=== PATIENT | female | born 1975 | race Asian ===

== ENCOUNTER → 2017-05-17 | Outpatient (CLI) | payer BC | LOC: FIMAGING 10:03 | PROVIDERS: ATTEND Obstetrics & Gynecology | DX: Z12.31 Encounter for screening mammogram for malignant neoplasm of breast (principal) | CPT/HCPCS: G0202 ==

== ENCOUNTER → 2018-05-18 | Outpatient (CLI) | payer BC, OTHER | LOC: FIMAGING 07:39 | PROVIDERS: ATTEND Obstetrics & Gynecology | DX: Z12.31 Encounter for screening mammogram for malignant neoplasm of breast (principal); Z80.3 Family history of malignant neoplasm of breast ==

== ENCOUNTER 2018-08-07 19:41 | Observation (INO) | payer OTHER ==
[2018-08-07] MEDS ORDERED: ONDANSETRON 4 MG/2 ML VIAL IVP ONE (19:58)
[2018-08-07] MEDS ORDERED: NS 1,000 ML IV ONE (19:58)
[2018-08-07] MEDS ORDERED: fentaNYL 100 MCG/2 ML INJ IVP ONE ×2 (19:58→21:17)
--- NOTE | 2018-08-07 19:59 | EDPHY ---
H & P Stated Complaint: Abdominal Pain Time Seen by Provider: 08/07/18 19:49 HPI/ROS: Chief Complaint: Abdominal pain, vomit HPI: 43-year-old woman began having onset of central abdominal pain at 2:00 a.m. This afternoon. She has vomited multiple times. No diarrhea. Patient described the pain as central pain, 8/10. No blood or coffee-grounds in her emesis. No fevers or chills. Does have a history of similar episodes years ago associated with food poisoning. She did eat some chicken and rice at lunchtime today. No other family members have been ill. No abdominal surgeries in the past. No fevers or chills. No cough. ROS: 10 systems were reviewed and were negative except those elements noted in the HPI. PMH: Denies Social History: No smoking, no alcohol, no recreational drug use Family History: non-contributory Physical Exam: Gen: Awake, Alert, No Distress HEENT: Nose: no rhinorrhea Eyes: PERRLA, EOMI Mouth: Moist mucosa Neck: Supple, no JVD Chest: nontender, lungs clear to auscultation Heart: S1, S2 normal, no murmur Abd: Soft, moderate right lower quadrant tenderness with mild voluntary guarding , no rebound Back: no CVA tenderness, no midline tenderness Ext: no edema, non-tender Skin: no rash Neuro: CN II-XII intact, Sensation grossly intact, Strength 5/5 in bilateral upper and lower extremities - Personal History LMP (Females 10-55): 8-14 Days Ago Current Tetanus/Diphtheria Vaccine: Yes Current Tetanus Diphtheria and Acellular Pertussis (TDAP): Yes - Medical/Surgical History Hx Asthma: No Hx Chronic Respiratory Disease: No Hx Diabetes: No Hx Cardiac Disease: No Hx Renal Disease: No Hx Cirrhosis: No Hx Alcoholism: No Hx HIV/AIDS: No Hx Splenectomy or Spleen Trauma: No Other PMH: Stomach ulcer - Social History Smoking Status: Never smoked Constitutional: Initial Vital Signs Temperature (C) 36.9 C 08/07/18 19:45 Heart Rate 68 08/07/18 19:45 Respiratory Rate 16 08/07/18 19:45 Blood Pressure 110/51 L 08/07/18 19:45 O2 Sat (%) 100 08/07/18 19:45 O2 Delivery Mode Room Air Allergies/Adverse Reactions: Penicillins Allergy (Unknown, Verified 09/15/09 17:11) Unknown Medical Decision Making - Diagnostics Imaging Results: Imaging Impressions Abdomen CT 08/07/18 19:58 Impression: 1. Acute appendicitis with appendiceal thickening up to 12 mm and periappendiceal fluid. 2. Mild constipation without bowel obstruction or pneumoperitoneum. Findings and recommendations discussed with Emergency Department physician, Donnie Springer MD at 21:00 hour, 08/07/2018. Final report concurs with initial preliminary interpretation. Imaging: Discussed imaging studies w/ call worker person Radiologist ED Course/Re-evaluation: CT scan positive for acute appendicitis. I have ordered ceftriaxone and Flagyl. Patient has a penicillin allergy but has had rash in the past. I have paged General surgery. Patient last ate at 1:00 p.m.. - Data Points Laboratory Results: Laboratory Results 08/07/18 20:00 08/07/18 20:00 08/07/18 08/07/18 08/07/18 20:50 20:00 20:00 WBC RBC Hgb Hct MCV MCH MCHC RDW Plt Count MPV Neut % (Auto) Lymph % (Auto) [place] % (Auto) Eos % (Auto) Baso % (Auto) Nucleat RBC Rel Count Absolute Neuts (auto) Absolute Lymphs (auto) Absolute Monos (auto) Absolute Eos (auto) Absolute Basos (auto) Absolute Nucleated RBC Immature Gran % Immature Gran # Sodium 138 mEq/L mEq/L (135-145) Potassium 3.7 mEq/L mEq/L (3.5-5.2) Chloride 105 mEq/L mEq/L (97-110) Carbon Dioxide 23 mEq/l mEq/l (22-31) Anion Gap 10 mEq/L mEq/L (6-14) BUN 18 mg/dL mg/dL (7-23) Creatinine 0.8 mg/dL mg/dL (0.6-1.0) Estimated GFR > 60 Glucose 109 mg/dL H mg/dL (70-100) Calcium 9.5 mg/dL mg/dL (8.5-10.4) Total Bilirubin 0.5 mg/dL mg/dL (0.1-1.4) AST 27 IU/L IU/L (14-46) ALT 26 IU/L IU/L (9-52) Alkaline Phosphatase 74 IU/L IU/L (38-126) Total Protein 7.6 g/dL g/dL (6.3-8.2) Albumin 4.5 g/dL g/dL (3.5-5.0) Beta HCG, Qual NEGATIVE Urine Color Pending Urine Appearance Pending Urine pH Pending Ur Specific [place] Pending Urine Protein Pending Urine Ketones Pending Urine Blood Pending Urine Nitrate Pending Urine Bilirubin Pending Urine Urobilinogen Pending Ur Leukocyte Esterase Pending Urine Glucose Pending 08/07/18 20:00 WBC 15.15 10^3/uL H 10^3/uL (3.80-9.50) RBC 3.98 10^6/uL L 10^6/uL (4.18-5.33) Hgb 13.1 g/dL g/dL (12.6-16.3) Hct 38.5 % % (38.0-47.0) MCV 96.7 fL fL (81.5-99.8) MCH 32.9 pg pg (27.9-34.1) MCHC 34.0 g/dL g/dL (32.4-36.7) RDW 12.2 % % (11.5-15.2) Plt Count 244 10^3/uL 10^3/uL (150-400) MPV 10.5 fL fL (8.7-11.7) Neut % (Auto) 88.2 % H % (39.3-74.2) Lymph % (Auto) 7.4 % L % (15.0-45.0) [place] % (Auto) 3.6 % L % (4.5-13.0) Eos % (Auto) 0.1 % L % (0.6-7.6) Baso % (Auto) 0.4 % % (0.3-1.7) Nucleat RBC Rel Count 0.0 % % (0.0-0.2) Absolute Neuts (auto) 13.35 10^3/uL H 10^3/uL (1.70-6.50) Absolute Lymphs (auto) 1.12 10^3/uL 10^3/uL (1.00-3.00) Absolute Monos (auto) 0.55 10^3/uL 10^3/uL (0.30-0.80) Absolute Eos (auto) 0.02 10^3/uL L 10^3/uL (0.03-0.40) Absolute Basos (auto) 0.06 10^3/uL 10^3/uL (0.02-0.10) Absolute Nucleated RBC 0.00 10^3/uL 10^3/uL (0-0.01) Immature Gran % 0.3 % % (0.0-1.1) Immature Gran # 0.05 10^3/uL 10^3/uL (0.00-0.10) Sodium Potassium Chloride Carbon Dioxide Anion Gap BUN Creatinine Estimated GFR Glucose Calcium Total Bilirubin AST ALT Alkaline Phosphatase Total Protein Albumin Beta HCG, Qual Urine Color Urine Appearance Urine pH Ur Specific [place] Urine Protein Urine Ketones Urine Blood Urine Nitrate Urine Bilirubin Urine Urobilinogen Ur Leukocyte Esterase Urine Glucose Medications Given: Discontinued Medications Fentanyl (Sublimaze) 50 mcg IVP EDNOW ONE Stop: 08/07/18 19:59 Last Admin: 08/07/18 20:07 Dose: 50 mcg Sodium Chloride (Ns) 1,000 mls @ 0 mls/hr IV ONCE ONE; Wide Open PRN Reason: Protocol Stop: 08/07/18 19:59 Last Admin: 08/07/18 20:07 Dose: 1,000 mls Ondansetron HCl (Zofran) 4 mg IVP EDNOW ONE Stop: 08/07/18 19:59 Last Admin: 08/07/18 20:07 Dose: 4 mg Departure - Departure Disposition: [facility] Inpatient Acute Clinical Impression: Acute appendicitis Condition: Fair Referrals: Jazz Morales PA [Primary Care Provider] - As per Instructions
[2018-08-07] MEDS ORDERED: IOHEXOL 350mgI/ML (OMNIPAQUE) 150 ML BTL IV ONE (20:37)
[2018-08-07 20:57] LABS: PLATELET COUNT 244 10^3/uL (150-400)
[2018-08-07] MEDS ORDERED: LR 1,000 ML IV ONE (21:37)
--- NOTE | 2018-08-07 21:53 | PDGENHP ---
History & Physical Chief Complaint: RLQ PAIN History of Present Illness: 44 FEMALE WITH 8HRS OF RLQ PAIN. SOME EMESIS BUT NO DIARHEA OR FEVER. WBC 15K. CT SHOWS 12 MM APPENDIX. RISKS AND OPTIONS FULLY DISCUSSED AND SHE WISHES TO PROCEED WITH LAP APPE Pertinent Past, Social, Family History: PMH NO MAJOR PROBLEMS AND NO PRIOR SURGERY. ROS - 10 PT REVIEW. SOC HX NO SMOKING. ALL PCN. MEDS NONE. FAM HX NONCONTRIBUTORY Relevant Physical Exam: GEN HEALTHY 44 FEMALE IN NO ACUTE DISTRESS, AFEBRILE. HEENT NONICTERIC, NO NODES OR ORAL LESIONS, PERRLA. CHEST CLEAR. COR RR. ABD SOFT WITH BS, TENDER LOWER ABD WITH SOME REBOUND. EXTREM OK. NEURO OK. PSYCH ALERT, ORIENTED, COOPERATIVE Cardiorespiratory Assessment: IMP ACUTE APPENDICITIS. PLAN LAP APPE/ RISKS AND OPTIONS FULLY DISCUSSED
[2018-08-07] MEDS ORDERED: HYDROmorphONE/DILAUDID 1 MG/ML INJ IVP PRN (21:58)
[2018-08-07] MEDS ORDERED: ONDANSETRON 4 MG/2 ML VIAL IVP PRN ×2 (21:58→23:17)
[2018-08-07] MEDS ORDERED: ZOLPIDEM TARTRATE 5 MG TAB PO PRN (21:59)
[2018-08-07] MEDS ORDERED: D5W 1/2 NS W/ 20 KCl/L 1,000 ML IV SCH (22:00)
--- NOTE | 2018-08-07 22:17 | PDANEPAE ---
ANE History of Present Illness appendicitis s/f lap appy ANE Past Medical History - Pulmonary History Hx Oxygen in Use at Home: No Hx Sleep Apnea: No - Endocrine History Hx Diabetes: No ANE Review of Systems Review of Systems: - Exercise capacity Exercise capacity: >=4 METS ANE Patient History - Allergies Allergies/Adverse Reactions: Penicillins Allergy (Unknown, Verified 08/07/18 21:41) Rash - Home Medications Home medications: home medication list seen and reviewed Home Medications: Ascorbic Acid [Vitamin C 500 mg (*)] 500 mg PO DAILY 08/07/18 [Last Taken ] Cholecalciferol Vit D3 [Vitamin D3 (*)] 1,000 units PO DAILY 08/07/18 [Last Taken 08/07/18] Herbals/Supplements -Info Only 1 ea PO AD 08/07/18 [Last Taken Unknown] Zolpidem Tartrate [Ambien 5MG (*)] 5 mg PO HS PRN 08/07/18 [Last Taken 08/04/18] - NPO status NPO Status: no food or drink >8 hours NPO Since - Liquids (Date): 08/07/18 NPO Since - Liquids (Time): 13:30 NPO Since - Solids (Date): 08/07/18 NPO Since - Solids (Time): 13:30 - Anes Hx Anes Hx: no prior problems - Smoking Hx Smoking Status: Never smoked Marijuana use: No - Alcohol Use Alcohol Use: Rarely - Family Anes Hx Family Anes Hx: none ANE Labs/Vital Signs - Labs Result Diagrams: 08/07/18 20:00 08/07/18 20:00 - Vital Signs Blood Pressure: 110/65 Heart Rate: 66 Respiratory Rate: 14 O2 Sat (%): 99 Height: 160.02 cm Weight: 47.627 kg ANE Physical Exam - Airway Neck exam: FROM Mallampati Score: Class 1 Mouth exam: normal dental/mouth exam - Pulmonary Pulmonary: no respiratory distress - Cardiovascular Cardiovascular: regular rate and rhythym - ASA Status ASA Status: I, E ANE Anesthesia Plan Anesthesia Plan: general endotracheal anesthesia
[2018-08-07] MEDS ORDERED: PROPOFOL/EMULSION 500 MG/50 ML BOTTLE IV ONE (22:23)
[2018-08-07] MEDS ORDERED: fentaNYL 100 MCG/2 ML INJ ONE (22:23)
[2018-08-07] MEDS ORDERED: DEXAMETHASONE 4 MG/ML VIAL ONE (22:26)
[2018-08-07] MEDS ORDERED: BUPIVACAINE 0.5% 30 ML SDV ONE (22:26)
[2018-08-07] MEDS ORDERED: LIDOCAINE 2% 100 MG/5 ML SYR ONE (22:26)
[2018-08-07] MEDS ORDERED: ONDANSETRON 4 MG/2 ML VIAL ONE (22:26)
[2018-08-07] MEDS ORDERED: ceFAZolin 1 GM/5 ML SYR ONE (22:27)
[2018-08-07] MEDS ORDERED: HEPARIN 1000 UNIT/1 ML MDV ONE (22:27)
[2018-08-07] MEDS ORDERED: ROCURONIUM 50 MG/5 ML VIAL ONE (22:29)
--- NOTE | 2018-08-07 23:14 | POSTOPPROG ---
Post Op Note Date of Operation: 08/07/18 Surgeon: Emil Angelo Anesthesiologist: SNEHA Anesthesia: GET(General Endotracheal) Pre-op Diagnosis: ACUTE APPENDICITIS Post-op Diagnosis: SAME Indication: PAIN Procedure: LAP APPE Findings: LARGE NONPERFORATED, INDURATED, PURULENT APPENDIX Inf/Abcess present in the surg proc area at time of surgery?: Yes Depth: Organ Space EBL: Minimal Complications: 0 Specimen(s): APPENDIX
[2018-08-07] MEDS ORDERED: fentaNYL 100 MCG/2 ML INJ IVP PRN (23:17)
[2018-08-07] MEDS ORDERED: LR 500 ML IV PRN (23:17)
[2018-08-07] MEDS ORDERED: PHENYLEPHRINE HCL 100 MCG/ML SYR IVP PRN (23:17)
[2018-08-07] MEDS ORDERED: MEPERIDINE 25 MG/0.5 ML AMP IVP PRN (23:17)
[2018-08-07] MEDS ORDERED: METOCLOPRAMIDE 10 MG/2 ML VIAL IVP PRN (23:17)
[2018-08-07] MEDS ORDERED: ALBUTEROL 3 ML DEYVIAL IH PRN (23:17)
[2018-08-07] MEDS ORDERED: HYDROCODONE/APAP 5/325 TAB PO PRN (23:17)
[2018-08-07] MEDS ORDERED: ACETAMINOPHEN 500 MG TAB PO PRN (23:17)
[2018-08-07] MEDS ORDERED: LABETALOL HCL 5 MG/ML 20 ML MDV IVP PRN (23:17)
[2018-08-07] MEDS ORDERED: oxyCODONE IR 5 MG TAB PO PRN (23:17)
[2018-08-07] MEDS ORDERED: PROMETHAZINE HCL 25 MG/ML INJ IVP PRN (23:17)
[2018-08-07] MEDS ORDERED: NALOXONE HCL 0.4 MG/ML INJ IVP PRN (23:17)
[2018-08-07] MEDS ORDERED: DEXAMETHASONE 4 MG/ML VIAL IVP PRN (23:17)
--- NOTE | 2018-08-07 23:31 | POSTANESTH ---
Post Anesthetic Evaluation Cardiovascular Status: Normal, Stable Respiratory Status: Normal, Stable Level of Consciousness/Mental Status: Can Participate in Eval Pain Control: Adequate, Prn Tx Ordered Nausea/Vomiting Control: Adequate, Prn Tx Ordered Complications Possibly Related to Anesthesia: None Noted
[2018-08-08] MEDS: OXYCODONE/APAP 5/325 TAB PO PRN ×2 (00:31→09:15)
[2018-08-08 07:40] VITALS: BP 81/44
--- NOTE | 2018-08-08 09:55 | ASMTLACE ---
LACE Length of stay for Answers: Less than 1 day current admission # of Emergency department Answers: 1-2 visits in the last 6 months Score: 1 Date Signed: 08/08/2018 09:54 AM Electronically Signed By:Renee Cota RN
--- NOTE | 2018-08-08 09:57 | ASMTCMCOM ---
CM Note CM Note Notes: Chart reviewed 43 year old female admitted via ED for abdominal pain. Diagnosed with appendicitis, s/p lap appendectomy. Plan: DC independently no needs identified. Date Signed: 08/08/2018 09:56 AM Electronically Signed By:Renee Cota RN
--- NOTE | 2018-08-08 10:22 | SOAPPROG ---
SOAP Progress Note Assessment/Plan: Assessment: 43 y/o F s/p lap appy POD#1 S: Has some incisional pain, oxycodone helps. Denies n/v. Tolerating clears. Has not passed gas yet. O: Alert Afebrile RRR No increased WOB Abdomen: soft, nontender, nondistended, incisions cdi Plan: Dispo home today. 08/08/18 10:21 Objective: Vital Signs Temp Pulse Resp BP Pulse Ox 36.7 C 52 L 16 81/44 L 95 08/08/18 07:38 08/08/18 07:38 08/08/18 07:38 08/08/18 07:38 08/08/18 07:38 08/07/18 08/08/18 08/09/18 05:59 05:59 05:59 Intake Total 3130 Output Total 10 Balance 3120 ICD10 Worksheet Patient Problems: Problems Problem Status Onset Acute appendicitis Acute
--- NOTE | 2018-08-11 10:28 | GOP ---
[f rep st] OPERATIVE REPORT DATE OF OPERATION: 08/08/2018 SURGEON: Emil Angelo MD INSIDE SALES ACCOUNT MANAGER: None. ANESTHESIOLOGIST: Dr. Johnson. Taken to the recovery room in good condition. PREOPERATIVE DIAGNOSIS: Acute appendicitis. POSTOPERATIVE DIAGNOSIS: Acute appendicitis. PROCEDURE PERFORMED: Laparoscopic appendectomy. FINDINGS: The patient was found have acute suppurative nonperforated appendicitis. ESTIMATED BLOOD LOSS: Negligible. DESCRIPTION OF PROCEDURE: The patient was taken to the operating room where she received a satisfact ory general endotracheal anesthesia by Dr. Johnson, placed in a supine position, prepped and draped in the usual sterile fashion. Periumbilical incision was made. A Veress needle inserted. Pneumoperito neum was established. Trocar was introduced. Laparoscope introduced. Good visualization was obtain ed. Two other trocars were placed in the lower abdomen under direct vision. The appendix was freed up from fibrinous adhesions adhering it to the retroileal abdominal wall. The appendix was elevated up. The mesoappendix was then divided with the Harmonic Scalpel. The appendix was dissected back, t he base was isolated and then divided with Endo-NUSRAT stapler, it was placed in a specimen bag and extr acted through the upper midline port site. Hemostasis was assured. The wound was irrigated. Trocar s removed under direct vision. Trocar sites were closed with 0 Vicryl for the fascia, 4-0 Monocryl s ubcuticular stitch for the skin. All layers were infiltrated with 0.5% Marcaine. COMPLICATIONS: No. /[id number]/MODL
== END 2018-08-08 11:25 | disposition home or self-care (01) ==
LOC: F1N 23:55
PROVIDERS: ADMIT Surgery; ATTEND Surgery
PROC: 0DTJ4ZZ Resection of Appendix, Percutaneous Endoscopic Approach (ICD-10-PCS; principal; 2018-08-07 22:30)
DX: K35.80 Unspecified acute appendicitis (principal); E86.0 Dehydration; Z88.0 Allergy status to penicillin
CPT/HCPCS: 44970; 74177; 96361; 96365; 96368; 96375; 96376; 99285; G0378; J0696; J1100; J2001; J2405; J2704; J3010; Q9967